=== PATIENT | female | born 1975 | race Caucasian/White ===

== ENCOUNTER 2024-09-29 17:01 | Emergency (ER) | payer OTHER ==
[2024-09-29] MEDS: Lidocaine 1% 5 ML VIAL INJECT ONE (17:41)
[2024-09-29] MEDS: Bacitracin/Neomycin/Polymyxin B Oint 0.9 GM U/D Packet TOP ONE (18:07)
[2024-09-29] MEDS: Bacitracin/Neomycin/Polymyxin B Oint 0.9 GM U/D Packet ONE (18:16)
[2024-09-29] MEDS: Lidocaine 1% 5 ML VIAL ONE (18:16)
== END 2024-09-29 18:20 | disposition home or self-care (01) ==
LOC: KA.ED 17:01
DX: S61.051A Open bite of right thumb without damage to nail, initial encounter (principal); S61.011A Laceration without foreign body of right thumb without damage to nail, initial encounter; Z79.899 Other long term (current) drug therapy; W54.0XXA Bitten by dog, initial encounter
CPT/HCPCS: 12002; 73140-F5; 99283; J2003